=== PATIENT | female | born 2005 | race African-American/Black ===

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

== ENCOUNTER 2024-03-19 10:59 | Emergency (ER) | payer OTHER ==
[~2024-03-19] VITALS: Ht 162.6 cm; Wt 60.0 kg
[~2024-03-19 10:59] MED LIST changes: +DIPH25CA83 MT; +EPIN0.3P3 IM
[2024-03-19 11:03] VITALS: BP 101/58; TEMP 98.6; O2SAT 99
[2024-03-19 11:05] VITALS: PULSE 140; RESP 18; O2SAT 100
[2024-03-19] MEDS ORDERED: P20 MT (11:41)
[2024-03-19] MEDS ORDERED: DIPH-1207 PO (11:41)
[2024-03-19] MEDS: PREDNISONE 20MG TABLET PO ONE (11:45)
== END 2024-03-19 11:49 | disposition home or self-care (01) ==
LOC: ER 10:59
DX: T78.40XA Allergy, unspecified, initial encounter (principal); L50.9 Urticaria, unspecified; Z79.899 Other long term (current) drug therapy; X58.XXXA Exposure to other specified factors, initial encounter
CPT/HCPCS: 99283; J7512

== ENCOUNTER 2025-03-17 14:51 | Emergency (ER) | payer SELFPAY ==
[~2025-03-17] VITALS: Ht 157.5 cm; Wt 68.0 kg
[~2025-03-17 14:51] MED LIST changes: +DIPH-1207 PO; +IBUP-1455 MT; -IBUP-2029 MT; +P20 MT
[2025-03-17 14:57] VITALS: O2SAT 100
[2025-03-17] MEDS: ACETAMINOPHEN 500MG TABLET PO ONE (17:45)
[2025-03-17] MEDS: LIDOCAINE 5% PATCH TOP SCH (18:02)
[2025-03-17 18:37] LABS: BASOPHILS % 0.8 % (0.0-2.0); EOSINOPHILS % 0.3 % (0.0-5.0); HEMATOCRIT. 37.6 % (36.0-48.0); HEMOGLOBIN. 12.1 g/dL (12.0-16.0); LYMPHOCYTES % 27.3 % (20.0-50.0); MEAN PLATELET VOLUME 8.0 fl (7.4-10.4); MONOCYTES % 8.4 % (2.0-8.0); NEUTROPHILS % 63.2 % (40.0-76.0); PLATELET 225 x1000/uL (130-400); RED BLOOD CELL COUNT 4.47 mill/uL (4.2-5.4); RED CELL DISTRIBUTION WIDTH 15.3 % (11.6-14.6)
[2025-03-17 18:50] LABS: HCG SCREEN NEGATIVE
[2025-03-17 18:52] LABS: CREATININE 0.9 mg/dL (0.6-1.0)
[2025-03-17 18:53] LABS: PROTEIN TOTAL 6.8 g/dL (6.0-8.3); UREA NITROGEN BLOOD 8 mg/dL (9-23)
[2025-03-17 18:54] LABS: ASPARTATE AMINOTRANSFERASE 17 IU/L (<34)
[2025-03-17 18:55] LABS: BILIRUBIN DIRECT 0.1 mg/dL (<=3.0); BILIRUBIN TOTAL 0.6 mg/dL (0.1-1.0)
[2025-03-17] MEDS ORDERED: ACET-2708 MT (19:06)
[2025-03-17] MEDS ORDERED: LIDO-53 TP (19:06)
[2025-03-17 19:45] VITALS: BP 102/57; PULSE 61; RESP 16; TEMP 37.1; O2SAT 100
== END 2025-03-17 19:51 | disposition home or self-care (01) ==
LOC: ER 14:51
DX: N64.4 Mastodynia (principal); I10 Essential (primary) hypertension
CPT/HCPCS: 36415; 71045; 80048; 80076; 83735; 84703; 85025; 99284